=== PATIENT | female | born 1985 | race Caucasian/White ===

== ENCOUNTER 2019-01-15 00:26 | Inpatient (IN) | payer OTHER ==
[~2019-01-15 00:26] MED LIST: AMOXICILLIN500 MG PO; NORCO 5-325 TA1 EACH PO
--- NOTE | 2019-01-15 08:15 | PR ---
[facility] [address] [facility] [place], [place] [address] Signed Progress Notes IP Datetime Report Generated by CPN: 01/15/2019 08:15 PROGRESS NOTES: [id number] Impression: Normal progression of labor Procedures: Artificial ROM Plan: Continue present management; Anticipate Vaginal Delivery VITAL SIGNS: [id number] Vital Signs: Reviewed; Within Normal Limits VS Notable Details: BS = 75 EXAM: [id number] Dilatation: 2.0 Effacement: 75 Station: -2 Uterine Contractions: every 2-4 minutes MEMBRANES: [id number] Membrane Status: Intact ROM Note: AROM withotu difficulty, with small amount clear fluid seen. Comments: Continue induciton, patient planning on Epidural later on. Fetus A: [id number] FHR Baseline: 140 Variability: Moderate 6-25bpm Accelerations: 15X15 Presentation: Vertex Fetus B: [id number] Signing Physician: Tanmay Velasquez MD Copies: ~ *Electronically Signed* 01/15/19814 TANMAY VELASQUEZ MD PATIENT NAME: RAND BOWEN DONG PROGRESS NOTE DATE OF : 89 PHYSICIAN: TANMAY VELASQUEZ MD RPT #: [id number] REPORT IS CONFIDENTIAL AND NOT TO BE RELEASED WITHOUT AUTHORIZATION
--- NOTE | 2019-01-15 12:57 | PR ---
[facility] [address] [facility] [place], [place] [address] Signed Progress Notes IP Datetime Report Generated by CPN: 01/15/2019 12:57 PROGRESS NOTES: [id number] Impression: Normal progression of labor Procedures: Artificial ROM Plan: Continue present management VITAL SIGNS: [id number] Vital Signs: Reviewed; Within Normal Limits VS Notable Details: BS = 75 EXAM: [id number] Dilatation: 3.5 Effacement: 85 Station: -2 Uterine Contractions: every 2-4 minutes MEMBRANES: [id number] Membrane Status: Ruptured Amniotic Fluid Color: Clear ROM Note: AROM withotu difficulty, with small amount clear fluid seen. Comments: Getting more uncomfortable, starting to have cervical change. Will continue monitoring. Fetus A: [id number] FHR Baseline: 120 Variability: Moderate 6-25bpm Accelerations: 15X15 Presentation: Vertex Fetus B: [id number] Signing Physician: Tanmay Velasquez MD Copies: ~ *Electronically Signed* 01/15/19 1257 TANMAY VELASQUEZ MD PATIENT NAME: RAND BOWEN DONG PROGRESS NOTE DATE OF : 89 PHYSICIAN: TANMAY VELASQUEZ MD RPT #: [id number] REPORT IS CONFIDENTIAL AND NOT TO BE RELEASED WITHOUT AUTHORIZATION
--- NOTE | 2019-01-15 16:40 | PR ---
[facility] [address] [facility] [place], [place] [address] Signed Progress Notes IP Datetime Report Generated by CPN: 01/15/2019 16:39 PROGRESS NOTES: [id number] Impression: Slow Progression of Labor Procedures: Intrauterine Pressure Catheter; Scalp Electrode Plan: Continue present management VITAL SIGNS: [id number] Vital Signs: Reviewed; Within Normal Limits VS Notable Details: BS = 75 EXAM: [id number] Dilatation: 4.5 Effacement: 85 Station: -2 Uterine Contractions: every 2-4 minutes MEMBRANES: [id number] Membrane Status: Ruptured Amniotic Fluid Color: Clear ROM Note: AROM withotu difficulty, with small amount clear fluid seen. Comments: Comfortable with Epidural. Slow progress. Internal monitors applied, may need Pitocin augmentation Fetus A: [id number] FHR Baseline: 120 Variability: Moderate 6-25bpm Accelerations: 15X15 Presentation: Vertex Fetus B: [id number] Signing Physician: Seymour Velasquez MD Copies: ~ *Electronically Signed* 01/15/19 6725 SEYMOUR VELASQUEZ MD PATIENT NAME: RAND BOWEN DONG PROGRESS NOTE DATE OF : 89 PHYSICIAN: SEYMOUR VELASQUEZ MD RPT #: [id number] REPORT IS CONFIDENTIAL AND NOT TO BE RELEASED WITHOUT AUTHORIZATION
--- NOTE | 2019-01-15 21:05 | PR ---
[facility] [address] [place], [place] [address] Signed Progress Notes IP Datetime Report Generated by CPIsra: 01/15/2019 21:05 PROGRESS NOTES: [id number] Impression: Arrest of dilatation/descent Procedures: Intrauterine Pressure Catheter; Scalp Electrode Plan: Deliver- Section Informed Consent Obtain: Section Delivery; Risks, Benefits and Alternatives Discussed VITAL SIGNS: [id number] Vital Signs: Reviewed; Within Normal Limits VS Notable Details: BS = 75 EXAM: [id number] Dilatation: 4.5 Effacement: 85 Station: -2 Uterine Contractions: every 2-4 minutes MEMBRANES: [id number] Membrane Status: Ruptured Amniotic Fluid Color: Clear ROM Note: AROM withotu difficulty, with small amount clear fluid seen. Comments: On Pitocin for about 2 hours with good contractions, but no cervical change for about 4 hours, head not well-applied to cervix and borderline pelvis. Discussed with patient. Recommend C/S; discussed procedure, risks, benefits, questions answered. Consent signed. OR/Anesthesia called; balloon artist to OR for Primary C/S Fetus A: [id number] FHR Baseline: 135 Variability: Moderate 6-25bpm Accelerations: 15X15 Decelerations: Late; Variable Presentation: Vertex Fetus B: [id number] Signing Physician: Tanmay Velasquez MD Copies: *Electronically Signed* 01/15/19 4015 TANMAY VELASQUEZ MD PATIENT NAME: RAND BOWEN PROGRESS NOTE DATE OF : 89 PHYSICIAN: TANMAY VELASQUEZ MD RPT #: [id number] REPORT IS CONFIDENTIAL AND NOT TO BE RELEASED WITHOUT AUTHORIZATION [address] [address] Signed ~ *Electronically Signed* 01/15/192104 TANMAY VELASQUEZ MD PATIENT NAME: RAND BOWEN PROGRESS NOTE DATE OF : 89 PHYSICIAN: TANMAY VELASQUEZ MD RPT #: [id number] REPORT IS CONFIDENTIAL AND NOT TO BE RELEASED WITHOUT AUTHORIZATION
--- NOTE | 2019-01-15 22:59 | NUR ---
01/15/19 225 Rachel Bolden 2252 PATIENT ARRIVES TO ROOM 102 VIA BED. PATIENT AWAKE, MOTHER AT BEDSIDE. RESP EVEN AND UNLABORED, ROOM AIR SATS >95%. 2255 SIGNIFICANT OTHER, BABY, AND FBC RN AT BEDSIDE. RESP EVEN AND UNLABORED, ROOM AIR SATS CONTINUE TO BE >95%.
--- NOTE | 2019-01-16 12:44 | PR ---
[facility] [address] [facility] [place] [address] Signed PP Progress Notes Datetime Report Generated by CPN: 01/16/2019 12:44 SUBJECTIVE: [id number] Pain: Within normal limits Nausea/Vomiting: Denies Vital Signs: [id number] Vital Signs: Reviewed; Within Normal Limits Notable Details: PP Hgb/Hct = 13.0/37.9 Urine concentrated EXAM: [id number] Abdomen/Uterus: Normal Lochia: Normal Extremities: Normal Exam Comments: dressing clean and dry IMPRESSION/PLAN/PROCEDURES: [id number] Impression: Normal progression Plan: Continue present management Procedures: None Progress Notes: Doing well, without complaint. Increase actitivy and po fluids Signing Physician: Seymour Velasquez MD Copies: ~ *Electronically Signed* 01/16/19 1244 SEYMOUR VELASQUEZ MD PATIENT NAME: RAND BOWEN PROGRESS NOTE DATE OF : 89 PHYSICIAN: SEYMOUR VELASQUEZ MD RPT #: [id number] REPORT IS CONFIDENTIAL AND NOT TO BE RELEASED WITHOUT AUTHORIZATION
--- NOTE | 2019-01-16 15:44 | OR ---
[facility] [address] [place], [place] [address] Signed DATE OF OPERATION: 01/15/2019 SURGEON: Tanmay Thompson MD Patient of Dr. Thompson. PREOPERATIVE DIAGNOSES: Failure to progress, gestational diabetes. POSTOPERATIVE DIAGNOSES: Failure to progress, gestational diabetes. PROCEDURES PERFORMED: Primary low transverse segment section, delivery of live male infant. TEXTURE ARTIST: Dr. Aguilar. ANESTHESIA: Epidural. ESTIMATED BLOOD LOSS: 550 mL. COMPLICATIONS: None. DRAINS: Weiss to bladder. FINDINGS: Live male infant, Apgars 8 and 9. Weight 7 pounds 10 ounces. Normal uterus. There was a succenturiate lobe of the placenta, which came out intact. Normal tubes and ovaries bilateral. DESCRIPTION OF PROCEDURE: The patient was brought to the operating room, placed in supine position. After adequate epidural anesthesia was obtained, was prepped and draped in usual sterile fashion. The patient already had Weiss catheter in place. A Pfannenstiel skin incision was made with a scalpel and extended through the subcutaneous tissue with the Bovie and Electronically Signed By: TANMAY THOMPSON MD 01/16/19 1544 PATIENT NAME: RAND BOWEN OPERATIVE REPORT DATE OF : 89 REPORT #: [id number] PHYSICIAN: TANMAY THOMPSON MD PCP: TANMAY THOMPSON MD REPORT IS CONFIDENTIAL AND NOT TO BE RELEASED WITHOUT AUTHORIZATION [facility] [address] [place], [place] [address] Signed the scalpel. Any bleeding spots were grasped with hemostats and cauterized with the Bovie. Fascia was nicked with scalpel and extended in transverse fashion using curved scissors. The underlying abdominal musculature was bluntly and sharply from the fascia above and below the incision. The abdominal musculature was bluntly and sharply along the midline. Peritoneum was grasped with hemostats, elevated, nicked with curved scissors, extended in vertical fashion using curved scissors. The Angel self-retaining retractor was then inserted into the incision and tightened in place. The lower uterine segment was identified. The bladder noted to be well below the area of dissection. Scalpel was used to carefully alex the lower uterine segment. Bulging bag of fluid came from the incision. Finger dissection was then used to extend the incision in transverse fashion and the membranes were ruptured with pickups with teeth. The infant was noted to be in the vertex ROP presentation. The 's head was easily delivered from the incision. The rest of the was then easily delivered from the incision and cord doubly clamped and cut. The passed off table in good condition to awaiting nurse. Placenta was carefully removed. Previous ultrasound said there was a succenturiate lobe of the placenta and the placenta did come out intact and there was a small succenturiate lobe noted. The uterine cavity was explored with a lap pad to remove any retained membranes. An angle stitch of 0 Monocryl was placed at one end of the incision and a running locking stitch of 0 Monocryl starting at the other end used to close the incision. Second running stitch of 0 Monocryl was used to imbricate the first layer. On the left side, there was hematoma just below the angle and so hand was placed behind the broad ligament and the stitch carefully placed through the lower segment at the lower edge and after placing this through and through with 0 Monocryl stitch, this was tied in place. Second eifrav-yw-kiiky stitch was applied right at the angle with these two stitches. Good hemostasis was noted and hematoma remained stable throughout the rest of the case. The entire pelvis was irrigated, suctioned, examined, and good hemostasis was noted except for a small superficial bleeding which was controlled while on the lower uterine segment which was controlled with the Bovie. When good hemostasis was obtained, the Angel self retractor was removed. The hematoma was observed and palpated and noted to be soft, this was no longer expanding and appeared stable from earlier right after placing the two stitches. So, all instruments were removed. A sheet of ACell placed over lower uterine segment to help with healing and then the anterior wall peritoneum closed using running stitch of 2-0 Vicryl suture. The abdominal musculature was reapproximated using interrupted stitches of 0 Vicryl suture. The abdominal wall incision was irrigated, suctioned, examined, any bleeding spots cauterized with the Bovie. Powdered ACell was sprinkled on the abdominal musculature to help with healing, then the fascia closed using two running stitch of 0 Vicryl suture meeting in the midline. Subcutaneous tissue was irrigated, suctioned, examined, any bleeding spots cauterized with the Bovie. Because of the thickness of the adipose tissue, it was decided to close this in two layers, so interrupted stitches of 2-0 Vicryl suture were used to close the subcutaneous tissue and deep layer and then interrupted 3-0 Vicryl suture used to close the more Electronically Signed By: TANMAY THOMPSON MD 01/16/19 1544 PATIENT NAME: RAND BOWEN OPERATIVE REPORT DATE OF : 89 REPORT #: [id number] PHYSICIAN: TANMAY THOMPSON MD PCP: TANMAY THOMPSON MD REPORT IS CONFIDENTIAL AND NOT TO BE RELEASED WITHOUT AUTHORIZATION [facility] [address] [address] Signed superficial in the subcutaneous tissue. Skin was reapproximated using skin clips. The patient tolerated the procedure well, went to recovery room in good condition. The sponge, needle, instrument count correct at the end of procedure. MD FAUSTO Moran/MODL /[id number] Copies: ~ Electronically Signed By: TANMAY THOMPSON MD 01/16/19 1544 PATIENT NAME: RAND BOWEN OPERATIVE REPORT DATE OF : 89 REPORT #: [id number] PHYSICIAN: TANMAY THOMPSON MD PCP: TANMAY THOMPSON MD REPORT IS CONFIDENTIAL AND NOT TO BE RELEASED WITHOUT AUTHORIZATION
--- NOTE | 2019-01-17 09:01 | PR ---
[facility] [address] [facility] [place], [place] [address] Signed PP Progress Notes Datetime Report Generated by CPN: 01/17/2019 09:01 SUBJECTIVE: [id number] Pain: Within normal limits Nausea/Vomiting: Denies Vital Signs: [id number] Vital Signs: Reviewed; Within Normal Limits Notable Details: PP Hgb/Hct = 13.0/37.9 Urine concentrated EXAM: [id number] Abdomen/Uterus: Normal Lochia: Normal Extremities: Normal Incision: Normal Exam Comments: dressing clean and dry IMPRESSION/PLAN/PROCEDURES: [id number] Impression: Normal progression Plan: Continue present management Procedures: None Progress Notes: Doing well, without complaint, voiding without difficulty, urine output much better than yesterday. Plan home tomorrow. Signing Physician: Seymour Velasquez MD Copies: ~ *Electronically Signed* 01/17/19900 SEYMOUR VELASQUEZ MD PATIENT NAME: RAND BOWEN PROGRESS NOTE DATE OF : 89 PHYSICIAN: SEYMOUR VELASQUEZ MD RPT #: [id number] REPORT IS CONFIDENTIAL AND NOT TO BE RELEASED WITHOUT AUTHORIZATION
--- NOTE | 2019-01-18 12:49 | PR ---
[facility] [address] [facility] [place], [place] [address] Signed PP Progress Notes Datetime Report Generated by CPN: 01/18/2019 12:48 SUBJECTIVE: [id number] Pain: Within normal limits Nausea/Vomiting: Denies Vital Signs: [id number] Vital Signs: Reviewed; Within Normal Limits Notable Details: PP Hgb/Hct = 13.0/37.9 Urine concentrated EXAM: [id number] Abdomen/Uterus: Normal Lochia: Normal Extremities: Normal Incision: Normal Exam Comments: slight erythema across lower abdomen, just above incision and extending lateral to end of incision, no masses, no swelling, no pressure on incision IMPRESSION/PLAN/PROCEDURES: [id number] Impression: Normal progression Other Impression: Mild Superficial Cellulitis Plan: Antibiotic therapy; Discharge Procedures: None Progress Notes: Discussed findings with patient; will send home, but start on antibiotics Signing Physician: Seymour Velasquez MD Copies: ~ *Electronically Signed* 01/18/19 1248 SEYMOUR VELASQUEZ MD PATIENT NAME: RAND BOWEN PROGRESS NOTE DATE OF : 89 PHYSICIAN: SEYMOUR VELASQUEZ MD RPT #: [id number] REPORT IS CONFIDENTIAL AND NOT TO BE RELEASED WITHOUT AUTHORIZATION
== END 2019-01-18 15:30 | disposition home or self-care (01) | DRG 788 ==
LOC: FBC 00:26
PROVIDERS: ADMIT General Practice
PROC: 10907ZC Drainage of Amniotic Fluid, Therapeutic from Products of Conception, Via Natural or Artificial Opening (ICD-10-PCS; 2019-01-15)
PROC: 10H07YZ Insertion of Other Device into Products of Conception, Via Natural or Artificial Opening (ICD-10-PCS; 2019-01-15)
PROC: 3E0P7VZ Introduction of Hormone into Female Reproductive, Via Natural or Artificial Opening (ICD-10-PCS; 2019-01-15)
PROC: 00HU33Z Insertion of Infusion Device into Spinal Canal, Percutaneous Approach (ICD-10-PCS; 2019-01-15)
PROC: 3E0R3BZ Introduction of Anesthetic Agent into Spinal Canal, Percutaneous Approach (ICD-10-PCS; 2019-01-15)
PROC: 10D00Z1 Extraction of Products of Conception, Low, Open Approach (ICD-10-PCS; principal; 2019-01-15 21:30)
DX: O62.1 Secondary uterine inertia (principal); Z3A.39 39 weeks gestation of pregnancy; Z37.0 Single live birth; O86.01 Infection of obstetric surgical wound, superficial incisional site; O24.424 Gestational diabetes mellitus in childbirth, insulin controlled; O76 Abnormality in fetal heart rate and rhythm complicating labor and delivery; O99.334 Smoking (tobacco) complicating childbirth; F17.210 Nicotine dependence, cigarettes, uncomplicated; O43.193 Other malformation of placenta, third trimester; Z88.1 Allergy status to other antibiotic agents; Z88.2 Allergy status to sulfonamides
CPT/HCPCS: 36415; 81001; 85027; 87088; J0690; J1644; J2274; J2370; J2405; J2590; J2795; J7120